=== PATIENT | female | born 1975 | race Caucasian/White ===

== ENCOUNTER → 2017-05-07 | Emergency (ER) | payer OTHER ==
[~2017-05-07] VITALS: Ht 160 cm; Wt 74.8 kg
[~2017-05-07] MED LIST: PREVACID15 MG
== END | disposition home or self-care (01) ==
LOC: ER 19:35
DX: B34.9 Viral infection, unspecified (principal)

== ENCOUNTER 2022-08-04 16:43 | Emergency (ER) | payer OTHER ==
[~2022-08-04] VITALS: Ht 160 cm; Wt 81.6 kg
== END 2022-08-04 19:22 | disposition home or self-care (01) ==
LOC: ER 16:43
DX: K05.10 Chronic gingivitis, plaque induced (principal)

== ENCOUNTER 2024-05-16 06:19 | Day surgery (SDC) | payer OTHER ==
[2024-05-15 14:01] VITALS: BP 113/75
[~2024-05-16] VITALS: Ht 160 cm; Wt 72.6 kg
[2024-05-16] MEDS ORDERED: CEFAZOLIN SODIUM 1,000 MG VIAL ONE (09:28)
[2024-05-16] MEDS ORDERED: CHLORHEXIDINE GLUCONATE 120 ML BOTTLE TOP ONE (16:30)
[2024-05-16] MEDS ORDERED: MORPHINE SULFATE 4 MG/ML VIAL IV ONE ×2 (18:10→18:40)
== END 2024-05-16 19:55 | disposition home or self-care (01) ==
LOC: CIR.AMB 06:19
PROVIDERS: ATTEND Surgery
DX: C50.412 Malignant neoplasm of upper-outer quadrant of left female breast (principal); R59.0 Localized enlarged lymph nodes

== ENCOUNTER 2024-12-17 08:15 | Inpatient (IN) | payer OTHER ==
[~2024-12-17] VITALS: Ht 160 cm; Wt 70.3 kg
[2024-12-17] MEDS ORDERED: TAMOXIFEN CITRA20 MG (11:02)
[2024-12-17] MEDS ORDERED: VITAMIN D (11:02)
[2024-12-17] MEDS ORDERED: VITAMIN B12 (11:03)
[2024-12-17 11:04] VITALS: BP 107/68
[2024-12-17 12:04] LABS: BASO % 0.5 % (0.1-1.2); EOS # 0.11 (0.04-0.54); EOS % 1.9 % (0.7-7.0); LYMPH # 0.98 (1.18-3.74); LYMPH % 17.3 % (19.3-53.1); MEAN PLATELET VOLUME 10.80 fl (9.4-12.4); MONO # 0.29 (0.24-0.82); MONO % 5.1 % (4.7-12.5); NEUT # 4.25 (1.56-6.13); NEUT % 74.8 % (34.0-71.1); RED CELL DISTRIBUTION WIDTH 12.4 % (11.6-14.4)
[2024-12-17 12:11] LABS: URINE APPEARANCE Clear; URINE BILIRRUBIN Negative (NEGATIVE); URINE BLOOD Negative; URINE COLOR Yellow; URINE GLUCOSE Negative (NEGATIVE); URINE KETONE Trace (NEGATIVE); URINE LEUKOCYTE Negative; URINE NITRATE Negative; URINE PROTEIN Negative (NEGATIVE); URINE UROBILINOGEN 0.2 E.U./dl
[2024-12-17 12:15] LABS: URINE BACTERIA 63.5 uL (0.0-1933); URINE EPITHELIAL CELLS 4.7 uL (0.0-38.8); URINE RBC 9.5 uL (0.0-20.8); URINE WBC 8.7 uL (0.0-23.2)
[2024-12-17 12:17] LABS: URINE CAST 0.58 uL (0.0-1.40)
[2024-12-17 12:40] LABS: INR 1.03
[2024-12-17 13:34] LABS: ALT/SGPT 24.0 U/L (12-78); AST/SGOT 16.0 U/L (15-37); BILIRUBIN TOTAL 0.27 mg/dL (0.3-1.2); BUN CREA RATIO 17.0 (7.0-25.0); CREATININE SERUM 0.7 mg/dL (0.55-1.02); GFR 89.31; GLOBULINA 3.1 G/DL (2.4-3.5); GLUCOSE FASTING 68.0 mg/dL (65-100); OSMOLALITY SERUM 281.0 MOSM/KG (275-295)
[2024-12-22] MEDS ORDERED: SURGIFLO APPLICATOR 1 EACH APPL TOP ONE (14:15)
[2024-12-22] MEDS ORDERED: HEMOSTATIC MATRIX 1 KIT KIT TOP ONE (14:15)
[2024-12-22] MEDS ORDERED: CEFOXITIN SODIUM 2,000 MG VIAL IV SCH (14:15)
[2024-12-22] MEDS ORDERED: MORPHINE SULFATE 4 MG/ML VIAL IV ONE (15:20)
[2024-12-22] MEDS ORDERED: MORPHINE SULFATE 4 MG/ML CARTRIDGE IV SCH (16:00)
[2024-12-22] MEDS ORDERED: PROMETHAZINE HCL 50 MG/ML AMPUL IV SCH (16:00)
[2024-12-22 18:25] VITALS: BP 108/66
[2024-12-22 20:08] LABS: BASO % 0.2 % (0.1-1.2); EOS # 0.02 (0.04-0.54); EOS % 0.2 % (0.7-7.0); LYMPH # 0.51 (1.18-3.74); LYMPH % 4.9 % (19.3-53.1); MEAN PLATELET VOLUME 10.80 fl (9.4-12.4); MONO # 0.24 (0.24-0.82); MONO % 2.3 % (4.7-12.5); NEUT # 9.57 (1.56-6.13); NEUT % 91.9 % (34.0-71.1); RED CELL DISTRIBUTION WIDTH 12.4 % (11.6-14.4)
[2024-12-22] MEDS ORDERED: SIMETHICONE 125 MG CAPSULE PO SCH (21:00)
[2024-12-22] MEDS ORDERED: GABAPENTIN 300 MG CAPSULE PO SCH (21:00)
[2024-12-23] VITALS: BP 101/57
[2024-12-23] MEDS ORDERED: GABAPENTIN300 MG PO (06:33)
[2024-12-23] MEDS ORDERED: IBUPROFEN800 MG PO (06:34)
[2024-12-23] MEDS ORDERED: SIMETHICONE125 M1 PO (06:34)
[2024-12-23] MEDS ORDERED: MIRALAX17 GM PO (06:34)
[2024-12-23 08:35] VITALS: BP 100/57; O2SAT 99
== END 2024-12-23 09:16 | disposition home or self-care (01) | DRG 743 ==
LOC: SURH 12-22 08:15 → O/R 12-22 10:00 → OB/GYN 12-22 15:41
PROVIDERS: ADMIT Obstetrics & Gynecology; ATTEND Obstetrics & Gynecology
PROC: 0UT7FZZ Resection of Bilateral Fallopian Tubes, Via Natural or Artificial Opening With Percutaneous Endoscopic Assistance (ICD-10-PCS; 2024-12-22)
PROC: 0UT2FZZ Resection of Bilateral Ovaries, Via Natural or Artificial Opening With Percutaneous Endoscopic Assistance (ICD-10-PCS; 2024-12-22)
PROC: 0UT9FZZ Resection of Uterus, Via Natural or Artificial Opening With Percutaneous Endoscopic Assistance (ICD-10-PCS; principal; 2024-12-22 10:00)
DX: N85.01 Benign endometrial hyperplasia (principal); N72 Inflammatory disease of cervix uteri; N83.12 Corpus luteum cyst of left ovary; R10.2 Pelvic and perineal pain; C50.412 Malignant neoplasm of upper-outer quadrant of left female breast